=== PATIENT | male | born 1965 | race Two or more races ===

== ENCOUNTER 2018-03-19 22:12 | Inpatient (IN) | payer MEDICAID ==
[2018-03-19] MEDS ORDERED: diphenhydrAMINE 50 MG/ML 1 ML VIAL IVP STA (22:22)
[2018-03-19] MEDS ORDERED: methylPREDNISolone SOD SUCCI 125 MG/2 ML VIAL IV STA (22:22)
[2018-03-19] MEDS ORDERED: FAMOTIDINE 20 MG/2 ML VIAL IV STA (22:22)
[2018-03-19] MEDS ORDERED: EPINEPHrine 1 MG/ML 1 ML AMP IV STA (22:22)
[2018-03-19] MEDS: PROPOFOL 10 MG/ML 20 ML VIAL IV STA (22:26)
[2018-03-19] MEDS ORDERED: RACEPINEPHRINE 2.25% NEB 0.5 ML NEBU INHALATION STA (22:30)
[2018-03-19] MEDS ORDERED: SODIUM CHLORIDE 0.9% 1,000 ML IV STA (22:41)
--- NOTE | 2018-03-19 22:54 | XR ---
EXAMINATION TYPE: XR soft tissue neck DATE OF EXAM: 03/19/2018 COMPARISON: NONE HISTORY: Dysphagia TECHNIQUE: 2 views FINDINGS: Epiglottis is normal. Tonsils and adenoids appear normal. Subglottic trachea appears normal . There is no sign of radiopaque foreign body. IMPRESSION: Negative cervical soft tissue exam.
[2018-03-19 22:55] LABS: Basophils % (A) 1 %; Eosinophils # (A) 0.2 k/uL (0-0.7); Eosinophils % (A) 4 %; HCT 42.9 % (39.0-53.0); HGB 14.6 gm/dL (13.0-17.5); Lymphocytes # (A) 3.1 k/uL (1.0-4.8); Lymphocytes % (A) 49 %; MCH 30.3 pg (25.0-35.0); Mean Platelet Volume 7.5; Monocytes # (A) 0.3 k/uL (0-1.0); Monocytes % (A) 5 %; Neutrophils # (A) 2.5 k/uL (1.3-7.7); Neutrophils % (A) 39 %; Platelet Count 158 k/uL (150-450); RBC 4.82 m/uL (4.30-5.90); RDW 12.9 % (11.5-15.5); WBC 6.3 k/uL (3.8-10.6)
[2018-03-19] MEDS ORDERED: DEXAMETHASONE SOD PHOSPHATE 10 MG/ML 1 ML VIAL IV STA (23:02)
[2018-03-19 23:06] LABS: ALT 33 U/L (21-72); AST 40 U/L (17-59); Albumin 4.3 g/dL (3.5-5.0); Alkaline Phosphatase 52 U/L (38-126); Anion Gap 13 mmol/L; Blood Urea Nitrogen 21 mg/dL (9-20); Calcium 8.8 mg/dL (8.4-10.2); Carbon Dioxide 23 mmol/L (22-30); Chloride 106 mmol/L (98-107); Glucose 125 mg/dL (74-99); Potassium 3.3 mmol/L (3.5-5.1); Sodium 142 mmol/L (137-145); Total Bilirubin 0.5 mg/dL (0.2-1.3)
[2018-03-19 23:28] LABS: ABG Base Excess -20.4 mmol/L; ABG Oxygen Saturation 71.3 % (94-97); ABG PH 7.25 (7.35-7.45); ABG TCO2 7 mmol/L (19-24)
[2018-03-19 23:42] LABS: ABG PCO2 16 mmHg (35-45); ABG PO2 42 mmHg (83-108)
[2018-03-19 23:43] LABS: ABG HCO3 7 mmol/L (21-25)
[2018-03-20] MEDS ORDERED: EPINEPHrine 1 MG/ML 1 ML AMP SQ PRN (00:48)
[2018-03-20] MEDS ORDERED: NALOXONE 0.4 MG/ML 1 ML VIAL IV PRN (00:48)
[2018-03-20] MEDS ORDERED: diphenhydrAMINE 50 MG/ML 1 ML VIAL IVP PRN (00:48)
[2018-03-20] MEDS ORDERED: IPRATROPIUM-ALBUTEROL 3 ML NEB INHALATION PRN (00:48)
--- NOTE | 2018-03-20 00:56 | ED ---
Allergic Reaction HPI - General Chief complaint: Allergic Reaction Stated complaint: allergic reaction Source: patient, family, RN notes reviewed, old records reviewed Mode of arrival: wheelchair Limitations: no limitations, physical limitation - History of Present Illness Initial Comments: A 52-year-old male the ER for evaluation regarding ALLERGIC reaction. Patient is in severe distress at this time unable to provide history, patient's vital by EMS and patient's family. Patient apparently became exposed to peanuts prior to arrival he did did give himself some epinephrine injection on route. Patient's symptoms have significantly worsened and progressed in resulting in more significant shortness of breath, feels like throat is closing, near syncopal events MD Complaint: allergic reaction -: hour(s) (1) Exposure: food (Peanuts) Symptoms: facial swelling, difficulty swallowing, difficulty breathing, hoarseness, nausea Severity: severe Treatment Prior to Arrival: epinephrine Previous Allergy History: prior ED visit(s), anaphylaxis, intubation - Related Data Previous Rx's Medication Instructions Recorded EPINEPHrine [Epipen 2-Heron] 0.3 mg IM ONCE PRN #1 auto.injct 05/09/17 EPINEPHrine [Epipen 2-Heron] 0.3 mg IM ONCE PRN #4 ml 03/21/18 Allergies Allergy/AdvReac Type Severity Reaction Status Date / Time peanut Allergy Anaphylaxis Verified 03/19/18 22:20 tree nut Allergy Anaphylaxis Verified 03/19/18 22:20 Review of Systems ROS Statement: Those systems with pertinent positive or pertinent negative responses have been documented in the HPI. ROS Other: All systems not noted in ROS Statement are negative. Past Medical History Past Medical History: No Reported History Additional Past Medical History / Comment(s): symptomatic bradycardia post pacemaker insertion, obstructive sleep apnea, nut ALLERGY, use intubation for similar ALLERGIC reactions. History of Any Multi-Drug Resistant Organisms: None Reported Past Surgical History: Pacemaker Type of Cardiac Device: Permanent Pacemaker Device Placement Date:: U Past Psychological History: No Psychological Hx Reported Smoking Status: Never smoker Past Alcohol Use History: None Reported Past Drug Use History: None Reported General Exam - General Exam Comments Initial Comments: stridorous with croupy cough, difficulty with secretions and swallowing Limitations: no limitations General appearance: alert (somnolent), anxious, in distress Head exam: Present: atraumatic, normocephalic, normal inspection Eye exam: Present: normal appearance, PERRL, EOMI. Absent: scleral icterus, conjunctival injection, periorbital swelling ENT exam: Present: normal exam, mucous membranes moist Neck exam: Present: normal inspection. Absent: tenderness, meningismus, lymphadenopathy Respiratory exam: Present: wheezes, accessory muscle use, decreased breath sounds, prolonged expiratory. Absent: respiratory distress, rales, rhonchi, stridor Cardiovascular Exam: Present: regular rate, normal rhythm, normal heart sounds. Absent: systolic murmur, diastolic murmur, rubs, gallop, clicks GI/Abdominal exam: Present: soft, normal bowel sounds. Absent: distended, tenderness, guarding, rebound, rigid Extremities exam: Present: normal inspection, full ROM, normal capillary refill. Absent: tenderness, pedal edema, joint swelling, calf tenderness Back exam: Present: normal inspection Neurological exam: Present: alert, oriented X3, CN II-XII intact Psychiatric exam: Present: normal affect, normal mood Skin exam: Present: warm, dry, intact, normal color. Absent: rash Course Vital Signs 03/19/18 03/19/18 03/19/18 22:16 22:33 22:41 Temperature Pulse Rate 78 96 96 Respiratory 34 H 27 H Rate Blood Pressure 153/86 123/73 O2 Sat by Pulse 100 100 Oximetry 03/19/18 03/19/18 03/19/18 22:42 22:46 23:00 Temperature Pulse Rate 86 88 70 Respiratory 32 H 8 L Rate Blood Pressure 135/73 128/78 O2 Sat by Pulse 100 100 Oximetry 03/19/18 03/19/18 03/19/18 23:10 23:15 23:30 Temperature Pulse Rate 68 64 62 Respiratory 12 20 13 Rate Blood Pressure 119/71 111/62 O2 Sat by Pulse 100 100 100 Oximetry 03/19/18 03/20/18 23:45 01:39 Temperature 97.6 F Pulse Rate 66 60 Respiratory 17 18 Rate Blood Pressure 119/60 109/70 O2 Sat by Pulse 100 100 Oximetry - Reevaluation(s) Reevaluation #1: 03/20/18 00:54 bedside monitoring with patient through ALLERGIC reaction, anaphylaxis. Patient showed multiple different times rest for distress, stridor, croupy type cough. Patient became somnolent after prolonged hyper-hyperventilation Reevaluation #2: 10/06/18 00:55 Patient's medical record is reviewed, spoke with family patient has multiple episodes of severe anaphylaxis and has required intubation prior Medical Decision Making - Medical Decision Making 52 male with severe ALLERGIC reaction anaphylaxis, ALLERGIC croup, ALLERGIC reaction. Patient given epinephrine antihistamines steroids here in the emergency room, and was closely monitored, edema closely monitored. Patient will be admitted ICU for continued monitoring of airway and cardiopulmonary status hemodynamic - Lab Data Result diagrams: 03/21/18 07:39 03/21/18 07:39 Lab Results 03/19/18 03/19/18 03/19/18 Range/Units 22:45 22:45 22:45 WBC 6.3 (3.8-10.6) k/uL RBC 4.82 (4.30-5.90) m/uL Hgb 14.6 (13.0-17.5) gm/dL Hct 42.9 (39.0-53.0) % MCV 89.0 (80.0-100.0) fL MCH 30.3 (25.0-35.0) pg MCHC 34.0 (31.0-37.0) g/dL RDW 12.9 (11.5-15.5) % Plt Count 158 (150-450) k/uL Neutrophils % 39 % Lymphocytes % 49 % Monocytes % 5 % Eosinophils % 4 % Basophils % 1 % Neutrophils # 2.5 (1.3-7.7) k/uL Lymphocytes # 3.1 (1.0-4.8) k/uL Monocytes # 0.3 (0-1.0) k/uL Eosinophils # 0.2 (0-0.7) k/uL Basophils # 0.0 (0-0.2) k/uL Sample Site ABG pH (7.35-7.45) ABG pCO2 (35-45) mmHg ABG pO2 (83-108) mmHg ABG HCO3 (21-25) mmol/L ABG Total CO2 (19-24) mmol/L ABG O2 Saturation (94-97) % ABG Base Excess mmol/L Sree Test FiO2 % Sodium 142 (137-145) mmol/L Potassium 3.3 L (3.5-5.1) mmol/L Chloride 106 (98-107) mmol/L Carbon Dioxide 23 (22-30) mmol/L Anion Gap 13 mmol/L BUN 21 H (9-20) mg/dL Creatinine 0.64 L (0.66-1.25) mg/dL Est GFR (CKD-EPI)AfAm >90 (>60 ml/min/1.73 sqM) Est GFR (CKD-EPI)NonAf >90 (>60 ml/min/1.73 sqM) Glucose 125 H (74-99) mg/dL Calcium 8.8 (8.4-10.2) mg/dL Magnesium 2.2 (1.6-2.3) mg/dL Total Bilirubin 0.5 (0.2-1.3) mg/dL AST 40 (17-59) U/L ALT 33 (21-72) U/L Alkaline Phosphatase 52 (38-126) U/L Total Protein 7.0 (6.3-8.2) g/dL Albumin 4.3 (3.5-5.0) g/dL 03/19/18 Range/Units 23:25 WBC (3.8-10.6) k/uL RBC (4.30-5.90) m/uL Hgb (13.0-17.5) gm/dL Hct (39.0-53.0) % MCV (80.0-100.0) fL MCH (25.0-35.0) pg MCHC (31.0-37.0) g/dL RDW (11.5-15.5) % Plt Count (150-450) k/uL Neutrophils % % Lymphocytes % % Monocytes % % Eosinophils % % Basophils % % Neutrophils # (1.3-7.7) k/uL Lymphocytes # (1.0-4.8) k/uL Monocytes # (0-1.0) k/uL Eosinophils # (0-0.7) k/uL Basophils # (0-0.2) k/uL Sample Site LRA ABG pH 7.25 L (7.35-7.45) ABG pCO2 16 L* (35-45) mmHg ABG pO2 42 L* (83-108) mmHg ABG HCO3 7 L* (21-25) mmol/L ABG Total CO2 7 L (19-24) mmol/L ABG O2 Saturation 71.3 L (94-97) % ABG Base Excess -20.4 mmol/L Sree Test Yes FiO2 40 % Sodium (137-145) mmol/L Potassium (3.5-5.1) mmol/L Chloride (98-107) mmol/L Carbon Dioxide (22-30) mmol/L Anion Gap mmol/L BUN (9-20) mg/dL Creatinine (0.66-1.25) mg/dL Est GFR (CKD-EPI)AfAm (>60 ml/min/1.73 sqM) Est GFR (CKD-EPI)NonAf (>60 ml/min/1.73 sqM) Glucose (74-99) mg/dL Calcium (8.4-10.2) mg/dL Magnesium (1.6-2.3) mg/dL Total Bilirubin (0.2-1.3) mg/dL AST (17-59) U/L ALT (21-72) U/L Alkaline Phosphatase (38-126) U/L Total Protein (6.3-8.2) g/dL Albumin (3.5-5.0) g/dL - Radiology Data Radiology results: report reviewed (X-ray soft tissue neck is negative), image reviewed Critical Care Time Critical Care Time: Yes Total Critical Care Time: 65 Disposition Clinical Impression: Allergic reaction, Anaphylaxis, Food allergy Disposition: ADMITTED IP TO THIS [facility] Condition: Serious Is patient prescribed a controlled substance at d/c from ED?: No
[2018-03-20] MEDS: POTASSIUM CHLORIDE 20 MEQ in WATER FOR INJECTION 1 100ML.BAG IVPB SCH ×2 (01:09→03:43)
[2018-03-20] MEDS: PROPOFOL 10 MG/ML 20 ML VIAL IV STA (01:36)
[2018-03-20] MEDS: SODIUM CHLORIDE 0.9% 1,000 ML IV SCH ×2 (02:00→11:00)
--- NOTE | 2018-03-20 02:17 | P.HPIM ---
History of Present Illness H&P Date: 03/20/18 Chief Complaint: Difficulty breathing facial swelling The patient is a 52-year-old male with a history of pacemaker insertion due to symptomatic bradycardia, obstructive sleep apnea and documented tree nut ALLERGY that presents to the ER with chief complaint of sudden difficulty breathing facial swelling and difficulty swallowing. Apparently the patient had consumed peanuts at approximately 10 p last evening and shortly thereafter became increasingly dyspneic, hoarse and feeling like his throat was closing over. The patient gives himself epinephrine approximately 10:30pm and subsequently presented to the ER, the patient denies any other complaints of chest pain palpitations, he denies any wheezing, patient otherwise has no complaints. Review of records indicates the patient presented here approximately a year ago in May 01 after being transferred from an outside hospital where he had been intubated for severe ALLERGIC reaction due to treatment ALLERGY. In the ER he received a comprehensive workup and was started on systemic steroids with Decadron, IV Benadryl and Pepcid and given 2 more doses of epinephrine. Patient appeared hemodynamically stable but was recommended for admission due to acute respiratory failure Review of Systems Pertinent positives per HPI, all other review of systems are otherwise negative Past Medical History Past Medical History: No Reported History Additional Past Medical History / Comment(s): symptomatic bradycardia post pacemaker insertion, obstructive sleep apnea, nut ALLERGY, use intubation for similar ALLERGIC reactions. History of Any Multi-Drug Resistant Organisms: None Reported Past Surgical History: Pacemaker Type of Cardiac Device: Permanent Pacemaker Device Placement Date:: U Past Psychological History: No Psychological Hx Reported Smoking Status: Never smoker Past Alcohol Use History: None Reported Past Drug Use History: None Reported Medications and Allergies Home Medications Medication Instructions Recorded Confirmed Type EPINEPHrine [Epipen 2-Heron] 0.3 mg IM ONCE PRN #1 auto.injct 05/09/17 03/19/18 Rx Allergies Allergy/AdvReac Type Severity Reaction Status Date / Time peanut Allergy Anaphylaxis Verified 03/19/18 22:20 tree nut Allergy Anaphylaxis Verified 03/19/18 22:20 Physical Exam Vitals: Vital Signs Temp Pulse Resp BP Pulse Ox 03/20/18 01:39 97.6 F 60 18 109/70 100 03/19/18 23:45 66 17 119/60 100 03/19/18 23:30 62 13 111/62 100 03/19/18 23:15 64 20 119/71 100 03/19/18 23:10 68 12 100 03/19/18 23:00 70 8 L 128/78 100 03/19/18 22:46 88 32 H 135/73 100 03/19/18 22:42 86 03/19/18 22:41 96 27 H 123/73 100 03/19/18 22:33 96 03/19/18 22:16 78 34 H 153/86 100 Intake and Output 03/19/18 03/19/18 03/20/18 14:59 22:59 06:59 Other: Weight 77.111 kg Constitutional: No acute distress, conversant, pleasant Eyes: Anicteric sclerae, moist conjunctiva, no lid-lag, PERRLA ENMT: NC/AT,Oropharynx clear, no erythema, exudates, mucoid cobblestoning in posterior pharynx Neck:Supple, FROM, no masses, or JVD, No carotid bruits; No thyromegaly Lungs: Clear to auscultation, Clear to percussion, Normal respiratory effort, no accessory muscle use Cardiovascular: Heart regular in rate and rhythm, No murmurs, gallops, or rubs no peripheral edema Abdominal: Soft Nontender, nom distended, no guarding, no rebound or rigidity, Normoactive bowel sounds No hepatomegaly, No splenomegaly, No palpable mass No abdominal wall hernia noted Skin: Normal temperature, tone, texture, turgor, No induration No subcutaneous nodules, No rash, lesions, No ulcers Extremities:No digital cyanosis No clubbing, Pedal pulses intact and symmetrical Radial pulses intact and symmetrical Normal gait and station, No calf tenderness Psychiatric: Alert and oriented to person, place and time, Appropriate affect Intact judgement Neuro: Muscles Strength 5/5 in all 4 extremities, Sensation to light touch grossly present throughout, Cranial nerves II-XII grossly intact. No focal sensory deficits Results CBC & Chem 7: 03/19/18 22:45 03/19/18 22:45 Labs: Abnormal Lab Results - Last 24 Hours (Table) 03/19/18 03/19/18 Range/Units 22:45 23:25 ABG pH 7.25 L (7.35-7.45) ABG pCO2 16 L* (35-45) mmHg ABG pO2 42 L* (83-108) mmHg ABG HCO3 7 L* (21-25) mmol/L ABG Total CO2 7 L (19-24) mmol/L ABG O2 Saturation 71.3 L (94-97) % Potassium 3.3 L (3.5-5.1) mmol/L BUN 21 H (9-20) mg/dL Creatinine 0.64 L (0.66-1.25) mg/dL Glucose 125 H (74-99) mg/dL Assessment and Plan (1) Acute respiratory failure with hypoxia Current Visit: Yes Status: Acute Code(s): J96.01 - ACUTE RESPIRATORY FAILURE WITH HYPOXIA SNOMED Code(s): 27961802 (2) Allergic reaction Current Visit: Yes Status: Acute Code(s): T78.40XA - ALLERGY, UNSPECIFIED, INITIAL ENCOUNTER SNOMED Code(s): 403609438 (3) Food allergy Current Visit: Yes Status: Acute Code(s): Z91.018 - ALLERGY TO OTHER FOODS SNOMED Code(s): 312700298 (4) Hypokalemia Current Visit: Yes Status: Acute Code(s): E87.6 - HYPOKALEMIA SNOMED Code( s): 64747043 Plan: The patient is admitted to the ICU anticipated greater than 2 midnight stay with acute respiratory failure with hypoxia due to severe ALLERGIC reaction with concern for anaphylaxis although the patient is currently hemodynamically stable patient was noted to be pretty profoundly hypoxemic on his ABG. I will continue current therapies with plans to consult pulmonology, continue systemic steroids with IV Decadron, continue IV Benadryl and Pepcid, with plans to repeat EpiPen if needed. We'll replace his potassium and check to see if his magnesium needs to be replaced. Continue to monitor the patient's clinical course CODE STATUS Full code Discussed plan of care with patient DVT Prophylaxis: Lovenox and SCDs Anticipated discharge 1-2 days
[2018-03-20 02:30] VITALS: BMI 25.9
[2018-03-20 02:39] LABS: ABG Base Excess -2.2 mmol/L; ABG HCO3 23 mmol/L (21-25); ABG Oxygen Saturation 97.7 % (94-97); ABG PCO2 40 mmHg (35-45); ABG PH 7.37 (7.35-7.45); ABG PO2 96 mmHg (83-108); ABG TCO2 24 mmol/L (19-24)
[2018-03-20 03:00] LABS: Glucose,Whole Blood 110 mg/dL (75-99)
[2018-03-20] MEDS: diphenhydrAMINE 50 MG/ML 1 ML VIAL IVP SCH ×3 (05:17→17:59)
[2018-03-20] MEDS ORDERED: DEXAMETHASONE SOD PHOSPHATE 4 MG/ML 1 ML VIAL IV SCH (06:00)
[2018-03-20 06:15] LABS: Appearance,Urine Clear (Clear); Bilirubin,Urine Negative (Negative); Blood,Urine Negative (Negative); Color,Urine Light Yellow; Glucose,Urine (UA) Negative (Negative); Ketones,Urine Negative (Negative); Leukocyte Esterase,Urine Negative (Negative); Nitrite,Urine Negative (Negative); PH, Urine 5.5 (5.0-8.0); Protein,Urine Negative (Negative); Specific Gravity,Urine 1.009 (1.001-1.035); Urobilinogen,Urine <2.0 mg/dL (<2.0)
[2018-03-20 06:18] LABS: Basophils % (A) 0 %; Eosinophils % (A) 1 %; HCT 43.4 % (39.0-53.0); HGB 14.2 gm/dL (13.0-17.5); Lymphocytes # (A) 0.5 k/uL (1.0-4.8); Lymphocytes % (A) 9 %; MCH 29.8 pg (25.0-35.0); MCHC 32.8 g/dL (31.0-37.0); Mean Platelet Volume 8.3; Monocytes # (A) 0.1 k/uL (0-1.0); Monocytes % (A) 1 %; Neutrophils # (A) 4.5 k/uL (1.3-7.7); Neutrophils % (A) 88 %; Platelet Count 147 k/uL (150-450); RBC 4.77 m/uL (4.30-5.90); RDW 12.7 % (11.5-15.5); WBC 5.1 k/uL (3.8-10.6)
[2018-03-20 06:49] LABS: Anion Gap 8 mmol/L; Blood Urea Nitrogen 14 mg/dL (9-20); Calcium 8.9 mg/dL (8.4-10.2); Carbon Dioxide 23 mmol/L (22-30); Chloride 111 mmol/L (98-107); Glucose 145 mg/dL (74-99); Phosphorus 2.6 mg/dL (2.5-4.5); Potassium 4.8 mmol/L (3.5-5.1); Sodium 142 mmol/L (137-145)
[2018-03-20] MEDS: ENOXAPARIN 40 MG/0.4 ML SYRINGE SQ SCH (08:24)
[2018-03-20] MEDS: FAMOTIDINE 20 MG/2 ML VIAL IV SCH ×2 (08:24→22:47)
--- NOTE | 2018-03-20 09:08 | P.PN ---
Progress Note - Text Progress Note Date: 03/20/18 52 year old male with history of not ALLERGY, seems that he accidentally had a peanut snack bar that may have contained tree nuts, he reports that he is not ALLERGIC to peanuts last time he had peanuts was around a week ago however last night he immediately started having symptoms of itchiness and sore throat after having that peanuts bar for which she decided to use his EpiPen and come to the hospital for further evaluation He feels better today, still reports some itchiness in the back of his throat, and he continues to have some hoarseness and soft speech is not normal for him. He is continued to be monitored in the ICU probably once his symptoms improve will evaluate for swallowing Examination of throat did not reveal any erythema or any swelling in his tongue or soft palate
--- NOTE | 2018-03-20 09:55 | P.CNPUL ---
History of Present Illness Consult date: 03/20/18 Chief complaint: Acute anaphylactic reaction History of present illness: A 52-year-old male patient with known history of nut ALLERGY, ingested yesterday a protein bar which could've included some nuts or peanuts within. He ingested this at around 10 PM and subsequently he became short of breath, and developed extensive throat and neck swelling to the point that he felt his airway was closing and he was able to breathe. The patient has had a similar episode in the past, and I have taken care of this patient here in ICU for acute anaphylaxis requiring intubation mechanical ventilation. In any rate, he was aware of this problem the give himself a shot of epinephrine however he continued to be symptomatic and upcoming to the emergency department where he was given another dose of epinephrine, IV Decadron, IV Benadryl and Pepcid. He received 2 more dose of epinephrine in the emergency department. Following that he was moved to the intensive care unit. Overnight the patient gradually improved and this morning the patient is back to his baseline. Is able to swallow liquids. He is talking normally. No signs of any respiratory distress. No stridor. No neck swelling. No tongue swelling. No throat swelling. No lip swelling. No hemodynamic instability. No cardiac arrhythmias and the patient has a pacemaker in place. The patient also has obstructive sleep apnea maintained on CPAP. 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 Review of Systems Constitutional: Denies chills, Denies fever Eyes: denies blurred vision, denies bulging eye, denies decreased vision Ears: deny: ear discharge, earache, tinnitus Ears, nose, mouth and throat: Reports swelling in mouth, Reports swelling in throat and all of the symptoms have resolved this morning. The patient did not require any intubation or respiratory support during this current event. Cardiovascular: Denies chest pain, Denies shortness of breath Respiratory: Denies cough Gastrointestinal: Denies abdominal pain, Denies diarrhea, Denies nausea, Denies vomiting Musculoskeletal: Denies myalgias Musculoskeletal: absent: ankle pain, ankle stiffness, ankle swelling Integumentary: Denies pruritus, Denies rash Neurological: Denies numbness, Denies weakness Psychiatric: Denies anxiety, Denies depression Endocrine: Denies fatigue, Denies weight change Past Medical History Past Medical History: No Reported History Additional Past Medical History / Comment(s): symptomatic bradycardia post pacemaker insertion, obstructive sleep apnea, nut ALLERGY, previous intubation for similar ALLERGIC reactions. History of Any Multi-Drug Resistant Organisms: None Reported Past Surgical History: Pacemaker Past Anesthesia/Blood Transfusion Reactions: No Reported Reaction Type of Cardiac Device: Permanent Pacemaker Device Placement Date:: Past Psychological History: No Psychological Hx Reported Smoking Status: Never smoker Past Alcohol Use History: None Reported Past Drug Use History: None Reported Medications and Allergies Home Medications Medication Instructions Recorded Confirmed Type EPINEPHrine [Epipen 2-Heron] 0.3 mg IM ONCE PRN #1 auto.injct 05/09/17 03/19/18 Rx Allergies Allergy/AdvReac Type Severity Reaction Status Date / Time peanut Allergy Anaphylaxis Verified 03/19/18 22:20 tree nut Allergy Anaphylaxis Verified 03/19/18 22:20 Physical Exam Vitals: Vital Signs Temp Pulse Resp BP Pulse Ox 03/20/18 09:00 59 L 20 119/77 100 03/20/18 08:30 60 33 H 106/68 100 03/20/18 08:00 97.9 F 60 22 110/69 100 03/20/18 07:30 59 L 12 115/77 100 03/20/18 07:00 60 11 L 113/72 100 03/20/18 06:30 60 11 L 124/81 100 03/20/18 06:00 60 11 L 118/78 100 03/20/18 05:30 60 12 112/74 100 03/20/18 05:00 59 L 15 113/69 100 03/20/18 04:30 59 L 15 118/75 100 03/20/18 04:00 97.8 F 60 17 120/76 99 03/20/18 03:30 60 17 118/74 100 03/20/18 03:00 60 24 117/72 100 03/20/18 02:30 60 118/75 100 03/20/18 02:10 59 L 125/77 100 03/20/18 02:00 97.8 F 60 126/81 100 03/20/18 01:39 97.6 F 60 18 109/70 100 03/19/18 23:45 66 17 119/60 100 03/19/18 23:30 62 13 111/62 100 03/19/18 23:15 64 20 119/71 100 03/19/18 23:10 68 12 100 03/19/18 23:00 70 8 L 128/78 100 03/19/18 22:46 88 32 H 135/73 100 03/19/18 22:42 86 03/19/18 22:41 96 27 H 123/73 100 03/19/18 22:33 96 03/19/18 22:16 78 34 H 153/86 100 Intake and Output 03/19/18 03/20/18 03/20/18 22:59 06:59 14:59 Intake Total 800 200 Output Total 1050 500 Balance -250 -300 Intake: IV 800 200 Potassium Chloride 20 meq 200 In Water For Injection 1 100ml.bag @ 50 mls/hr IVPB Q2HR KAYLEY Rx#: [id number] Sodium Chloride 0.9% 1, 600 200 000 ml @ 100 mls/hr IV . Q10H KAYLEY Rx#:[id number] Output: Urine 1050 500 Other: Voiding Method Urinal # Voids 1 1 Weight 77.111 kg 77.3 kg The patient appeared well nourished and normally developed. Vital signs as documented. Head exam is unremarkable. No scleral icterus or corneal arcus noted. Neck is without jugular venous distension, thyromegaly, or carotid bruits. Carotid upstrokes are brisk bilaterally. Lungs are clear to auscultation and percussion. Cardiac exam reveals the PMI to be normally sized and situated. Rhythm is regular. First and second heart sounds normal. No murmurs, rubs or gallops. Abdominal exam reveals normal bowel sounds, no masses , no organomegaly and no aortic enlargement. Extremities are nonedematous and both femoral and pedal pulses are normal. Neurologically the patient is awake and alert and the patient has no focal neurological deficit.Examination of the skin revealed no evidence of significant rashes, suspicious appearing nevi or other concerning lesions. Results - Laboratory Findings CBC and BMP: 03/20/18 05:33 03/20/18 05:33 ABG ABG pH 7.37 (7.35-7.45) 03/20/18 02:37 ABG pCO2 40 mmHg (35-45) 03/20/18 02:37 ABG pO2 96 mmHg (83-108) 03/20/18 02:37 ABG O2 Saturation 97.7 % (94-97) H 03/20/18 02:37 Abnormal lab findings: Abnormal Labs 03/19/18 03/19/18 03/20/18 22:45 23:25 01:59 Plt Count Lymphocytes # ABG pH 7.25 L ABG pCO2 16 L* ABG pO2 42 L* ABG HCO3 7 L* ABG Total CO2 7 L ABG O2 Saturation 71.3 L Potassium 3.3 L Chloride BUN 21 H Creatinine 0.64 L Glucose 125 H POC Glucose (mg/dL) 110 H 03/20/18 03/20/18 03/20/18 02:37 05:33 05:33 Plt Count 147 L Lymphocytes # 0.5 L ABG pH ABG pCO2 ABG pO2 ABG HCO3 ABG Total CO2 ABG O2 Saturation 97.7 H Potassium Chloride 111 H BUN Creatinine 0.64 L Glucose 145 H POC Glucose (mg/dL) Assessment and Plan Plan: 1 acute respiratory failure secondary to acute ALLERGIC reaction to NUT product , probably angioedema, and the patient came into the emergency department after injecting himself with epinephrine and further treatment here with epinephrine and steroids and Benadryl resulted in fully recovered and the patient is back to his baseline at this point in time and he is able to converse and talk without any major difficulties. No signs of any upper airway compromise. No stridor. No airway swelling. 2 previous intubations for the same 3 symptomatic bradycardia status post pacemaker insertion 4 obstructive sleep apnea. Plan We'll discontinue the Decadron and will put the patient a prednisone burst taper. Discontinue Benadryl. Transfer this patient to medical floor. Advance diet. Mobility and activity. Cut down the IV fluids to KVO. We'll continue to follow.
[2018-03-20] MEDS: predniSONE 20 MG TAB PO SCH (11:21)
[2018-03-21] MEDS: diphenhydrAMINE 50 MG/ML 1 ML VIAL IVP SCH ×2 (00:10→07:14)
[2018-03-21 06:00] VITALS: BP 105/66; PULSE 58; RESP 16; TEMP 98.2
[2018-03-21 08:39] LABS: Basophils % (A) 0 %; Eosinophils # (A) 0.1 k/uL (0-0.7); Eosinophils % (A) 1 %; HCT 41.9 % (39.0-53.0); HGB 13.9 gm/dL (13.0-17.5); Lymphocytes # (A) 1.5 k/uL (1.0-4.8); Lymphocytes % (A) 19 %; MCH 30.1 pg (25.0-35.0); MCHC 33.1 g/dL (31.0-37.0); MCV 90.8 fL (80.0-100.0); Mean Platelet Volume 8.4; Monocytes # (A) 0.4 k/uL (0-1.0); Monocytes % (A) 5 %; Neutrophils # (A) 5.8 k/uL (1.3-7.7); Neutrophils % (A) 74 %; Platelet Count 147 k/uL (150-450); RBC 4.61 m/uL (4.30-5.90); WBC 7.8 k/uL (3.8-10.6)
[2018-03-21 08:51] LABS: Anion Gap 7 mmol/L; Blood Urea Nitrogen 20 mg/dL (9-20); Calcium 9.2 mg/dL (8.4-10.2); Carbon Dioxide 26 mmol/L (22-30); Chloride 107 mmol/L (98-107); Glucose 98 mg/dL (74-99); Magnesium 2.1 mg/dL (1.6-2.3); Phosphorus 2.6 mg/dL (2.5-4.5); Potassium 4.1 mmol/L (3.5-5.1); Sodium 140 mmol/L (137-145)
[2018-03-21] MEDS: predniSONE 20 MG TAB PO SCH (09:08)
[2018-03-21] MEDS: ENOXAPARIN 40 MG/0.4 ML SYRINGE SQ SCH (09:09)
[2018-03-21] MEDS: FAMOTIDINE 20 MG/2 ML VIAL IV SCH (09:10)
[2018-03-21] MEDS: SODIUM CHLORIDE 0.9% 1,000 ML IV SCH (09:11)
--- NOTE | 2018-03-21 11:24 | P.DS ---
Providers Date of admission: 03/20/18 00:53 Expected date of discharge: 03/21/18 Attending physician: Aamir Dang MD Consults: 03/20/18 00:48 Consult Physician Routine Consulting Provider: Geetha Estrada Consult Reason/Comments: anaphylaxia Do you want consulting provider notified?: Yes Primary care physician: Stated None Hospital Course: Final diagnoses at discharge Acute hypoxic respiratory failure secondary to acute ALLERGIC reaction due to not ALLERGY Secondary diagnoses Life threatening not ALLERGY History of bradycardia status post pacemaker Obstructive sleep apnea on CPAP 52-year-old male with history of life-threatening not ALLERGY, patient presented the hospital after getting exposed do not resulting in short of breath and patient was sensing throat and neck swelling for which he injected himself with epinephrine without much improvement so he decided to come to the hospital where he received 2 more units of epinephrine . Patient was monitored in the ICU and was given steroids and Benadryl and Pepcid was kept on IV fluids and nothing by mouth patient started showing improvement he did not require any intubation. Patient was seen and examined on day of discharge he significantly improved now tolerating by mouth intake denies any sore throat or any sensation of congestion or neck swelling . Patient feels that his voice is back to baseline. Patient denies any shortness of breath, stridorous, or any respiratory distress. On examination patient does not have any tongue swelling or deviation of the uvula does not have any swelling of his soft palate or the neck, No stridors Lungs clear to auscultation bilaterally Normal S1 and S2 regular rate and rhythm no murmurs No leg swelling no tenderness palpation of the calf muscles bilaterally Patient will be discharged in stable clinical condition Patient educated to avoid not products and to read the labels for some products are contaminated with knots during manufacturing Patient will keep epi-pens available at all times 40 minutes were spent discharging this patient, and more than 50% of the time was spent in counseling the patient and family and in coordinating care. Patient Condition at Discharge: Serious Plan - Discharge Summary New Discharge Prescriptions: Continue EPINEPHrine [Epipen 2-Heron] 0.3 mg IM ONCE PRN #1 auto.injct PRN Reason: Anaphylaxis Discharge Medication List EPINEPHrine [Epipen 2-Heron] 0.3 mg IM ONCE PRN #1 auto.injct 05/09/17 [Rx] Follow up Appointment(s)/Referral(s): None,Stated [Primary Care Provider] - 1-2 days Patient Instructions/Handouts: Food Allergy (DC), Anaphylaxis (DC) Discharge Disposition: HOME SELF-CARE
== END 2018-03-21 13:28 | disposition home or self-care (01) | DRG 915 ==
LOC: EC 22:12 → 6ICU 03-20 00:53 → 5MS5E 03-20 13:09
PROVIDERS: ADMIT Family Medicine; ATTEND Family Medicine
DX: T78.05XA Anaphylactic reaction due to tree nuts and seeds, initial encounter (principal); J96.01 Acute respiratory failure with hypoxia; E87.6 Hypokalemia; G47.33 Obstructive sleep apnea (adult) (pediatric); J05.0 Acute obstructive laryngitis [croup]; Z95.0 Presence of cardiac pacemaker; Z91.018 Allergy to other foods; Z91.010 Allergy to peanuts
CPT/HCPCS: 36415; 36600; 70360; 80048; 80053; 81003; 82805; 83735; 84100; 85025; 94640; 96361; 96365; 96374; 96375; 99291

== ENCOUNTER 2019-06-16 15:10 | Emergency (ER) | payer MEDICAID ==
[2019-06-16 15:27] VITALS: RESP 16
[2019-06-16] MEDS ORDERED: MECLIZINE 12.5 MG TAB PO STA (15:28)
[2019-06-16 15:42] LABS: Glucose,Whole Blood 106 mg/dL (75-99)
[2019-06-16 15:44] LABS: Basophils # (A) 0.1 k/uL (0-0.2); Basophils % (A) 1 %; Eosinophils # (A) 0.3 k/uL (0-0.7); Eosinophils % (A) 5 %; HCT 44.8 % (39.0-53.0); Lymphocytes # (A) 1.2 k/uL (1.0-4.8); Lymphocytes % (A) 23 %; MCH 29.9 pg (25.0-35.0); MCHC 33.5 g/dL (31.0-37.0); Mean Platelet Volume 8.4; Monocytes # (A) 0.3 k/uL (0-1.0); Monocytes % (A) 6 %; Neutrophils # (A) 3.3 k/uL (1.3-7.7); Neutrophils % (A) 63 %; Platelet Count 164 k/uL (150-450); RBC 5.03 m/uL (4.30-5.90); RDW 12.3 % (11.5-15.5); WBC 5.3 k/uL (3.8-10.6)
[2019-06-16 15:49] LABS: ALT 24 U/L (4-49); AST 32 U/L (17-59); African American GFR (CKD) >90 (>60 ml/min/1.73 sqM); Albumin 4.3 g/dL (3.5-5.0); Alkaline Phosphatase 52 U/L (38-126); Anion Gap 9 mmol/L; Blood Urea Nitrogen 21 mg/dL (9-20); Calcium 9.5 mg/dL (8.4-10.2); Carbon Dioxide 24 mmol/L (22-30); Chloride 106 mmol/L (98-107); Creatine Kinase 72 U/L (55-170); Glucose 107 mg/dL (74-99); Magnesium 2.2 mg/dL (1.6-2.3); Non-African American GFR(CKD) >90 (>60 ml/min/1.73 sqM); Partial Thromboplastin Time 23.7 sec (22.0-30.0); Potassium 4.4 mmol/L (3.5-5.1); Prothrombin Time 10.4 sec (9.0-12.0); Sodium 139 mmol/L (137-145); Total Bilirubin 0.7 mg/dL (0.2-1.3); Total Protein 6.8 g/dL (6.3-8.2)
[2019-06-16] MEDS ORDERED: ONDANSETRON 4 MG/2 ML VIAL IVP STA (15:53)
--- NOTE | 2019-06-16 16:00 | ED ---
Dizziness HPI - General Chief Complaint: Syncope Stated Complaint: Syncope Time Seen by Provider: 06/16/19 15:25 Source: patient, family, RN notes reviewed Mode of arrival: ambulatory Limitations: no limitations - History of Present Illness Initial Comments: This is a 53-year-old male with a history of closed head injury in the past as well as a pacemaker who is been having episodes of syncope since last night fever past 2 days and had pain behind his left eye he had 2 episodes last night of passing out for about 15-20 seconds he had 2 further episodes in the emergency department today. He states he feels very dizzy lightheaded especially with looking to the left. He denies any focal weakness to his arms or legs no palpitations no fevers chills sweats he did have some nausea. No other modifying factors this time. He has no prior history of stroke he also has not had his pacemaker interrogated for quite some time. MD Complaint: dizziness, other - Related Data Previous Rx's Medication Instructions Recorded EPINEPHrine [Epipen 2-Heron] 0.3 mg IM ONCE PRN #1 auto.injct 05/09/17 EPINEPHrine [Epipen 2-Heron] 0.3 mg IM ONCE PRN #4 ml 03/21/18 Allergies Allergy/AdvReac Type Severity Reaction Status Date / Time peanut Allergy Anaphylaxis Verified 03/19/18 22:20 tree nut Allergy Anaphylaxis Verified 03/19/18 22:20 Review of Systems ROS Statement: Those systems with pertinent positive or pertinent negative responses have been documented in the HPI. ROS Other: All systems not noted in ROS Statement are negative. Past Medical History Past Medical History: No Reported History Additional Past Medical History / Comment(s): symptomatic bradycardia post pacemaker insertion, obstructive sleep apnea, nut ALLERGY, use intubation for similar ALLERGIC reactions. History of Any Multi-Drug Resistant Organisms: None Reported Past Surgical History: Pacemaker Past Anesthesia/Blood Transfusion Reactions: No Reported Reaction Type of Cardiac Device: Permanent Pacemaker Device Placement Date:: U Past Psychological History: No Psychological Hx Reported Smoking Status: Never smoker Past Alcohol Use History: None Reported Past Drug Use History: None Reported General Exam - General Exam Comments Initial Comments: This is a well-developed well-nourished awake alert oriented times 3 male Limitations: no limitations General appearance: alert, in no apparent distress Head exam: Present: atraumatic, normocephalic, normal inspection Eye exam: Present: normal appearance, PERRL, EOMI. Absent: scleral icterus, c onjunctival injection, periorbital swelling ENT exam: Present: normal exam, mucous membranes moist Neck exam: Present: normal inspection, full ROM, other. Absent: tenderness, meningismus, lymphadenopathy Respiratory exam: Present: normal lung sounds bilaterally. Absent: respiratory distress, wheezes, rales, rhonchi, stridor Cardiovascular Exam: Present: regular rate, normal rhythm, normal heart sounds. Absent: systolic murmur, diastolic murmur, rubs, gallop, clicks GI/Abdominal exam: Present: soft, normal bowel sounds. Absent: distended, tenderness, guarding, rebound, rigid Extremities exam: Present: normal inspection, full ROM, normal capillary refill. Absent: tenderness, pedal edema, joint swelling, calf tenderness Back exam: Present: normal inspection Neurological exam: Present: alert, oriented X3, CN II-XII intact Psychiatric exam: Present: normal affect, normal mood Skin exam: Present: warm, dry, intact, normal color. Absent: rash Course Vital Signs 06/16/19 06/16/19 06/16/19 15:24 15:53 18:36 Pulse Rate 60 61 62 Respiratory 16 16 16 Rate Blood Pressure 95/71 132/82 117/66 O2 Sat by Pulse 97 100 98 Oximetry EKG Findings - EKG Results: EKG: interpreted by RALEIGH (Pacemaker rhythm 62 ID interval 162 QRS 84 QT since QTC 388/93 some artifact present) Medical Decision Making - Medical Decision Making She have an episode of syncope admitted I did witness this lasted a brief period time perhaps 15-30 seconds. Patient remains awake and alert at this time. I did discuss the findings with patient family they've requested transfer to [place] discuss case with Dr. Del Cid was agreed to accept the patient transfer. - Lab Data Result diagrams: 06/16/19 15:11 06/16/19 15:11 Lab Results 06/16/19 06/16/19 06/16/19 Range/Units 15:11 15:11 15:11 WBC 5.3 (3.8-10.6) k/uL RBC 5.03 (4.30-5.90) m/uL Hgb 15.0 (13.0-17.5) gm/dL Hct 44.8 (39.0-53.0) % MCV 89.0 (80.0-100.0) fL MCH 29.9 (25.0-35.0) pg MCHC 33.5 (31.0-37.0) g/dL RDW 12.3 (11.5-15.5) % Plt Count 164 (150-450) k/uL Neutrophils % 63 % Lymphocytes % 23 % Monocytes % 6 % Eosinophils % 5 % Basophils % 1 % Neutrophils # 3.3 (1.3-7.7) k/uL Lymphocytes # 1.2 (1.0-4.8) k/uL Monocytes # 0.3 (0-1.0) k/uL Eosinophils # 0.3 (0-0.7) k/uL Basophils # 0.1 (0-0.2) k/uL PT 10.4 (9.0-12.0) sec INR 1.0 (<1.2) APTT 23.7 (22.0-30.0) sec Sodium 139 (137-145) mmol/L Potassium 4.4 (3.5-5.1) mmol/L Chloride 106 (98-107) mmol/L Carbon Dioxide 24 (22-30) mmol/L Anion Gap 9 mmol/L BUN 21 H (9-20) mg/dL Creatinine 0.93 (0.66-1.25) mg/dL Est GFR (CKD-EPI)AfAm >90 (>60 ml/min/1.73 sqM) Est GFR (CKD-EPI)NonAf >90 (>60 ml/min/1.73 sqM) Glucose 107 H (74-99) mg/dL POC Glucose (mg/dL) (75-99) mg/dL POC Glu Svp Monetization ID Calcium 9.5 (8.4-10.2) mg/dL Magnesium 2.2 (1.6-2.3) mg/dL Total Bilirubin 0.7 (0.2-1.3) mg/dL AST 32 (17-59) U/L ALT 24 (4-49) U/L Alkaline Phosphatase 52 (38-126) U/L Creatine Kinase 72 (55-170) U/L Troponin I (0.000-0.034) ng/mL Total Protein 6.8 (6.3-8.2) g/dL Albumin 4.3 (3.5-5.0) g/dL 06/16/19 06/16/19 Range/Units 15:11 15:31 WBC (3.8-10.6) k/uL RBC (4.30-5.90) m/uL Hgb (13.0-17.5) gm/dL Hct (39.0-53.0) % MCV (80.0-100.0) fL MCH (25.0-35.0) pg MCHC (31.0-37.0) g/dL RDW (11.5-15.5) % Plt Count (150-450) k/uL Neutrophils % % Lymphocytes % % Monocytes % % Eosinophils % % Basophils % % Neutrophils # (1.3-7.7) k/uL Lymphocytes # (1.0-4.8) k/uL Monocytes # (0-1.0) k/uL Eosinophils # (0-0.7) k/uL Basophils # (0-0.2) k/uL PT (9.0-12.0) sec INR (<1.2) APTT (22.0-30.0) sec Sodium (137-145) mmol/L Potassium (3.5-5.1) mmol/L Chloride (98-107) mmol/L Carbon Dioxide (22-30) mmol/L Anion Gap mmol/L BUN (9-20) mg/dL Creatinine (0.66-1.25) mg/dL Est GFR (CKD-EPI)AfAm (>60 ml/min/1.73 sqM) Est GFR (CKD-EPI)NonAf (>60 ml/min/1.73 sqM) Glucose (74-99) mg/dL POC Glucose (mg/dL) 106 H (75-99) mg/dL POC Glu Svp Monetization ID Dexter Rosa Calcium (8.4-10.2) mg/dL Magnesium (1.6-2.3) mg/dL Total Bilirubin (0.2-1.3) mg/dL AST (17-59) U/L ALT (4-49) U/L Alkaline Phosphatase (38-126) U/L Creatine Kinase (55-170) U/L Troponin I <0.012 (0.000-0.034) ng/mL Total Protein (6.3-8.2) g/dL Albumin (3.5-5.0) g/dL - Radiology Data Radiology results: report reviewed (I did review the imaging and report no acute findings.), image reviewed Disposition Clinical Impression: Syncopal episodes Disposition: OTHER INSTITUTION NOT DEFINED Condition: Stable Referrals: None,Stated [Primary Care Provider] - 1-2 days - Out of Hospital Transfer - Req. Specs Out of Hospital Transfer - Requested Specifics: Other Emergency Center
[2019-06-16] MEDS ORDERED: SODIUM CHLORIDE 0.9% 500 ML 500 ML IV STA (16:11)
--- NOTE | 2019-06-16 16:20 | CT ---
EXAMINATION TYPE: CT brain wo con DATE OF EXAM: 06/16/2019 COMPARISON: 08/10/2013 HISTORY: 53-year-old male Headache and multiple syncopal episodes TECHNIQUE: Examination was done in axial plane without intravenous contrast. Coronal and sagittal r econstructions performed. CT DLP: 1147 mGycm Automated exposure control for dose reduction was used. FINDINGS: There is no evidence of acute intracranial hemorrhage, acute ischemic changes, mass, mass-effect, or extra-axial fluid collection. There is no effacement of cerebral sulci or basal subarachnoid cister ns. There is no hydrocephalus. There is no midline shift. Tinajero-white matter distinction is preserv ed. Scattered moderate mucosal thickening ethmoid air cells. Slight leftward nasal septal deviation. Mast oid air cells are well pneumatized. Orbits and globes are intact. IMPRESSION: No acute intracranial abnormality seen.
--- NOTE | 2019-06-16 16:28 | CT ---
EXAMINATION TYPE: CT angio head neck DATE OF EXAM: 06/16/2019 COMPARISON: Brain same day HISTORY: 53-year-old male Headache and multiple syncopal episodes TECHNIQUE: Contiguous axial scanning of the head and neck performed with IV Contrast, patient injecte d with 65 mL of Isovue 370. Coronal/sagittal MIP reconstructions performed. 3-D reconstructions gener ated on a dedicated independent workstation. CT DLP: 619.2 mGycm Automated exposure control for dose reduction was used. FINDINGS: Neck: Conventional arch vessel branching anatomy. Both vertebral arteries are coarse. The bilateral common and internal carotid arteries are widely patent. Head: The vertebral, basilar, and internal carotid arteries are patent. Hypoplastic A1 segment right anterior cerebral artery. No significant stenosis or aneurysmal changes seen. IMPRESSION: 1. NECK: WIDELY PATENT VERTEBRAL AND CAROTID ARTERIES OF THE NECK. 2. HEAD: NO LARGE VESSEL INTRACRANIAL ARTERIAL OCCLUSION, SIGNIFICANT STENOSIS, OR ANEURYSMAL CHANGE IS SEEN.
[2019-06-16 18:38] VITALS: BP 117/66; PULSE 62
== END 2019-06-16 19:35 | disposition short-term general hospital (02) ==
LOC: EC 15:10
DX: R55 Syncope and collapse (principal); R50.9 Fever, unspecified; H57.12 Ocular pain, left eye; R11.0 Nausea; Z91.010 Allergy to peanuts; Z91.018 Allergy to other foods; Z87.828 Personal history of other (healed) physical injury and trauma; Z95.0 Presence of cardiac pacemaker
CPT/HCPCS: 36415; 93005; 80053; 82550; 83735; 84484; 85025; 85610; 85730; 70496; 70450; 70498; 99285; 96374; J2405; Q9967

== ENCOUNTER → 2019-08-03 | Outpatient (CLI) | payer MEDICAID ==
--- NOTE | 2019-08-03 11:40 | ECHOS ---
STRESS ECHOCARDIOGRAM DATE OF SERVICE: 08/03/2019 LUMASON: 1 vial INDICATIONS: History of syncope. MEDICATIONS: BASELINE HEART RATE: 100 BASELINE BLOOD PRESSURE: 115/56 MAXIMUM HEART RATE: 156 MAXIMUM BLOOD PRESSURE: 172/65 85% MPHR: 141 100% MPHR: 166 METS: 12.1 MAXIMUM STAGE REACHED: IV TOTAL EXERCISE TIME: 10 minutes 15 seconds CLINICAL INFORMATION: Baseline heart rate 100 beats per minute. Baseline blood pressure 115/56 mmHg. Baseline 12-lead ECG shows normal sinus rhythm with early repolarization abnormality inferolaterally with a [address] elevation. Patient exercised on a Biju protocol for 10 minutes 15 seconds achieving a peak heart rate of 156 beats per minute. Normal blood pressure response. No exercise induced arrhythmias. The baseline 2D echo images were suboptimal; therefore, Lumason contrast was used. There was at baseline normal LV size and systolic function was noted without segmental wall motion abnormalities. At peak exercise, there was excellent augmentation of overall LV contractility without development of any wall motion abnormalities. At recovery, regional global LV systolic function remained normal. IMPRESSION: 1. No ECG or echocardiographic evidence for ischemia. 2. No arrhythmias noted. MMODL / IJN: [id number] /
== END | disposition home or self-care (01) ==
LOC: RADECHMAIN 08:23
PROVIDERS: ATTEND Internal Medicine Clinical Cardiac Electrophysiology
DX: R55 Syncope and collapse (principal); R00.2 Palpitations; R68.84 Jaw pain
CPT/HCPCS: 93351; Q9950

== ENCOUNTER → 2023-01-29 | Outpatient (CLI) | payer MEDICAID ==
--- NOTE | 2023-01-29 16:56 | XR ---
EXAMINATION TYPE: XR ankle complete LT DATE OF EXAM: 01/29/2023 COMPARISON: NONE HISTORY: Pain TECHNIQUE: 3 views of the left ankle are submitted for evaluation. FINDINGS: There is no evidence for fracture or dislocation. Ankle mortise is intact. Mild lateral sof t tissue swelling. Postoperative changes involving the great toe. IMPRESSION: 1. No evidence for acute fracture.
== END | disposition home or self-care (01) ==
LOC: RADXRMAIN 16:39
PROVIDERS: ATTEND Physician Assistant
DX: M25.572 Pain in left ankle and joints of left foot (principal)

== ENCOUNTER 2023-04-09 09:33 | Emergency (ER) | payer MEDICAID ==
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
[2023-04-09 10:50] VITALS: BP 115/75; PULSE 78; RESP 16; TEMP 98.4
== END 2023-04-09 11:36 | disposition home or self-care (01) ==
LOC: EC 09:33
DX: L23.7 Allergic contact dermatitis due to plants, except food (principal); Z91.010 Allergy to peanuts; Z91.018 Allergy to other foods; Z95.0 Presence of cardiac pacemaker
CPT/HCPCS: 99283

== ENCOUNTER 2024-07-11 23:36 | Emergency (ER) | payer BC, MEDICAID ==
--- NOTE | 2024-07-11 23:45 | ED ---
Chest Pain HPI - General Source: patient, RN notes reviewed Mode of arrival: ambulatory Limitations: no limitations - History of Present Illness MD Complaint: chest pain <Jenna Bryan - Last Filed: 07/11/24 23:43> <Maycol Naidu - Last Filed: 07/12/24 01:13> - General Chief Complaint: Chest Pain Stated Complaint: Chest Pain Time Seen by Provider: 07/11/24 23:40 - History of Present Illness Initial Comments: Quick Note: This is a 58-year-old male who presents to the emergency department for chest pain and abdominal pain. States that his pacemaker has been out of battery for the last 2 weeks and his heart rate is getting down as low as 34. He is also now experiencing left-sided chest pain. Denies any history of heart attacks. Additionally, states that he has been having left lower quadrant abdominal pain for the last few days. He is concerned because he has a history of his colon rupturing and states that pain feels very similar. (Jenna Bryan) 58-year-old male presenting with left lower quadrant pain. [facility] Patient is coming in with chief complaint of left lower quadrant pain for the past several days as well as several hard bowel movements. No central chest pain. No fever. No dysuria or hematuria. (Maycol Naidu) - Related Data Previous Rx's Medication Instructions Recorded EPINEPHrine [Epipen 2-Heron] 0.3 mg IM ONCE PRN #1 auto.injct 05/09/17 EPINEPHrine [Epipen 2-Heron] 0.3 mg IM ONCE PRN #4 ml 03/21/18 EPINEPHrine (Auto Inject) [Epipen] 0.3 mg IM ONCE PRN #1 pack 10/07/22 Famotidine [Pepcid] 20 mg PO BID #14 tablet 10/07/22 predniSONE 50 mg PO DAILY #5 tab 10/07/22 Hydrocortisone Oint 1 applic TOPICAL BID #28 gm 04/09/23 [Hydrocortisone 2.5% Oint] hydrOXYzine HCL [Atarax] 25 mg PO TID PRN #20 tab 04/09/23 methylPREDNISolone [Medrol Dose 0 mg PO DIRECTED #1 packet 04/09/23 Pack] Amoxic-Pot Clav 875-125Mg 1 tab PO Q12HR 10 Days #20 tab 07/12/24 [Augmentin 874-274] Allergies Allergy/AdvReac Type Severity Reaction Status Date / Time peanut Allergy Anaphylaxis Verified 07/12/24 00:11 tree nut Allergy Anaphylaxis Verified 07/12/24 00:11 Review of Systems ROS Other: All systems not noted in ROS Statement are negative. <Jenna Bryan - Last Filed: 07/11/24 23:43> ROS Other: All systems not noted in ROS Statement are negative. <Maycol Naidu - Last Filed: 07/12/24 01:13> ROS Statement: Those systems with pertinent positive or pertinent negative responses have been documented in the HPI. Past Medical History Past Medical History: No Reported History Additional Past Medical History / Comment(s): symptomatic bradycardia post pacemaker insertion, obstructive sleep apnea, nut ALLERGY, use intubation for similar ALLERGIC reactions. History of Any Multi-Drug Resistant Organisms: None Reported Past Surgical History: Pacemaker Past Anesthesia/Blood Transfusion Reactions: No Reported Reaction Type of Cardiac Device: Permanent Pacemaker Device Placement Date:: U Past Psychological History: No Psychological Hx Reported Smoking Status: Never smoker Past Alcohol Use History: None Reported Past Drug Use History: None Reported <Jenna Bryan - Last Filed: 07/11/24 23:43> General Exam <Jenna Bryan - Last Filed: 07/11/24 23:43> General appearance: alert, in no apparent distress Head exam: Present: atraumatic, normocephalic Eye exam: Present: normal appearance, PERRL ENT exam: Present: normal exam Neck exam: Present: normal inspection. Absent: tenderness, meningismus Respiratory exam: Present: normal lung sounds bilaterally. Absent: respiratory distress, wheezes Cardiovascular Exam: Present: regular rate, normal rhythm GI/Abdominal exam: Present: soft, tenderness (LLQ). Absent: distended Extremities exam: Present: normal inspection Neurological exam: Present: alert, oriented X3, CN II-XII intact. Absent: motor sensory deficit Psychiatric exam: Present: normal affect, normal mood Skin exam: Present: warm, dry, intact <Maycol Naidu - Last Filed: 07/12/24 01:13> - General Exam Comments Initial Comments: Visual Physical Exam Vital signs reviewed General: Well-appearing, nontoxic, no acute distress. Head: Normocephalic, atraumatic Eyes: PERRLA, EOMI ENT: Airway patent Chest: Nonlabored breathing Skin: No visual rash, normal skin tone Neuro: Alert and oriented 3 Musculoskeletal: No gross abnormalities (Jenna Bryan) Course Vital Signs 07/12/24 00:05 Temperature 98.5 F Pulse Rate 69 Respiratory 16 Rate Blood Pressure 140/88 O2 Sat by Pulse 99 Oximetry Chest Pain MDM <Jenna Bryan - Last Filed: 07/11/24 23:43> <Maycol Naidu - Last Filed: 07/12/24 01:13> - [facility] I performed the QuickNote portion of this chart. Signed Jenna Bryan PA-C. (Jenna Bryan) Was pt. sent in by a medical professional or institution (ALICIA Mistry, CELLOPHANE BAG MACHINE OPERATOR, urgent care, hospital, or [facility]...) When possible be specific @ -No Did you speak to anyone other than the patient for history (EMS, parent, family, police, friend...)? What history was obtained from this source @ -No Did you review nursing and triage notes (agree or disagree)? Why? @ -I reviewed and agree with nursing and triage notes Were old charts reviewed (outside hosp., previous admission, EMS record, old EKG, old radiological studies, urgent care reports/EKG's, [facility] records)? Report findings @ -No old charts were reviewed Differential Abdominal Pain Men: Appendicitis, cholecystitis, diverticulosis, ischemic bowel, pancreatitis, hepatitis, UTI, gastroenteritis, AAA, incarcerated hernia, bowel obstruction, constipation, inflammatory bowel, hepatitis, peptic ulcer disease, splenic infarction, perforated viscus, testicular torsion, this is not meant to be an all-inclusive list EKG interpreted by me (3pts min.). @ -Sinus bradycardia rate of 57, NC interval 160, QRS duration 87, QTc [address] segment elevation. X-rays interpreted by me (1pt min.). @ -[Chest x-ray negative for acute cardiopulmonary findings CT interpreted by me (1pt min.). @ -CT brain negative for intracranial hemorrhage or mass effect, CT of the abdomen pelvis with contrast shows acute diverticulitis. U/S interpreted by me (1pt. min.). @ -None done What testing was considered but not performed or refused? (CT, X-rays, U/S, labs)? Why? @ -None What meds were considered but not given or refused? Why? @ -None Did you discuss the management of the patient with other professionals (professionals i.e. , PA, CELLOPHANE BAG MACHINE OPERATOR, lab, RT, psych nurse, clinical social work aide, soda column operator, teacher, peace officer, shoe caser)? Give summary @ -No Was smoking cessation discussed for >3mins.? @ -No Was critical care preformed (if so, how long)? @ -No Were there social determinants of health that impacted care today? How? (Home lessness, low income, unemployed, alcoholism, drug addiction, transportation, low edu. Level, literacy, decrease access to med. care, [facility]p, rehab)? @ -No Was there de-escalation of care discussed even if they declined (Discuss DNR or withdrawal of care, Hospice)? DNR status @ -No What co-morbidities impacted this encounter? (DM, HTN, Smoking, COPD, CAD, Cancer, CVA, ARF, Chemo, Hep., AIDS, mental health diagnosis, sleep apnea, morbid obesity)? @ -None Was patient admitted / discharged? Hospital course, mention meds given and route, prescriptions, significant lab abnormalities, going to OR and other pertinent info. @ -[ 58-year-old male with chief complaint of left lower quadrant pain. Patient is tender on exam. He is afebrile he is in sinus rhythm not pacemaker dependent. Patient has CT evidence of acute diverticulitis. He has a normal white blood cell count, normal lactic, normal laboratory testing otherwise. Patient's pain is controlled in the emergency department. He started on Augmentin. He will continue to follow as an outpatient. Undiagnosed new problem with uncertain prognosis? @ -No Drug Therapy requiring intensive monitoring for toxicity (Heparin, Nitro, Insuli n, Cardizem)? @ -No Were any procedures done? @ -No Diagnosis/symptom? @Acute diverticulitis Acute, or Chronic, or Acute on Chronic? @ -Acute Uncomplicated (without systemic symptoms) or Complicated (systemic symptoms)? @ -Default Side effects of treatment? @ -No Exacerbation, Progression, or Severe Exacerbation? @ -No Poses a threat to life or bodily function? How? (Chest pain, USA, CT, pneumonia, PE, COPD, DKA, ARF, appy, cholecystitis, CVA, Diverticulitis, Homicidal, Suicidal, threat to staff... and all critical care pts) @ -No (Maycol Naidu) Disposition <Jenna Bryan - Last Filed: 07/11/24 23:43> Is patient prescribed a controlled substance at d/c from ED?: No Time of Disposition: 01:13 <Maycol Naidu - Last Filed: 07/12/24 01:13> Clinical Impression: Diverticulitis Disposition: HOME SELF-CARE Condition: Fair Instructions (If sedation given, give patient instructions): Diverticulitis (ED) Prescriptions: Amoxic-Pot Clav 875-125Mg [Augmentin 875-125] 1 tab PO Q12HR 10 Days #20 tab Referrals: None,Stated [Primary Care Provider] - 1-2 days
[2024-07-12] MEDS: SODIUM CHLORIDE 0.9% 1,000 ML IV ONE (00:22)
[2024-07-12] MEDS: ONDANSETRON 4 MG/2 ML VIAL IVP STA (00:37)
[2024-07-12 00:47] LABS: Basophils # (A) 0.1 k/uL (0-0.2); Basophils % (A) 1 %; Eosinophils # (A) 0.3 k/uL (0-0.7); Eosinophils % (A) 4 %; HCT 44.4 % (39.0-53.0); HGB 14.8 gm/dL (13.0-17.5); Lymphocytes # (A) 1.8 k/uL (1.0-4.8); Lymphocytes % (A) 23 %; MCH 30.1 pg (25.0-35.0); MCHC 33.4 g/dL (31.0-37.0); MCV 90.1 fL (80.0-100.0); Mean Platelet Volume 8.1; Monocytes # (A) 0.5 k/uL (0-1.0); Monocytes % (A) 6 %; Neutrophils % (A) 65 %; Platelet Count 165 k/uL (150-450); RBC 4.93 m/uL (4.30-5.90); RDW 12.8 % (11.5-15.5); WBC 7.7 k/uL (3.8-10.6)
[2024-07-12 00:48] LABS: Appearance,Urine Clear (Clear); Bilirubin,Urine Negative (Negative); Blood,Urine Negative (Negative); Color,Urine Light Yellow; Glucose,Urine (UA) Negative (Negative); Ketones,Urine Negative (Negative); Leukocyte Esterase,Urine Negative (Negative); Nitrite,Urine Negative (Negative); Protein,Urine Negative (Negative); Specific Gravity,Urine 1.028 (1.001-1.035); Urobilinogen,Urine <2.0 mg/dL (<2.0)
[2024-07-12 01:00] LABS: ALT 20 U/L (4-49); AST 22 U/L (17-59); African American GFR (CKD) >90 (>60 ml/min/1.73 sqM); Albumin 4.3 g/dL (3.5-5.0); Alkaline Phosphatase 56 U/L (38-126); Anion Gap 11 mmol/L; Blood Urea Nitrogen 25 mg/dL (9-20); Calcium 9.1 mg/dL (8.4-10.2); Carbon Dioxide 26 mmol/L (22-30); Chloride 100 mmol/L (98-107); Glucose 99 mg/dL (74-99); Magnesium 2.3 mg/dL (1.6-2.3); Non-African American GFR(CKD) >90 (>60 ml/min/1.73 sqM); Potassium 4.4 mmol/L (3.5-5.1); Sodium 137 mmol/L (137-145); Total Bilirubin 1.1 mg/dL (0.2-1.3); Total Protein 6.6 g/dL (6.3-8.2)
--- NOTE | 2024-07-12 01:00 | CT ---
EXAM: CT Head Without Intravenous Contrast CLINICAL HISTORY: ITS.REASON CT Reason: fall/syncope TECHNIQUE: Axial computed tomography images of the head/brain without intravenous contrast. This CT exam was performed using one or more of the following dose reduction techniques: automated exposure control, adjustment of the mA and/or kV according to patient size, and/or use of iterative reconstruction technique. COMPARISON: No relevant prior studies available. FINDINGS: No acute intracranial hemorrhage. No midline shift or mass effect. The territorial emery-white matter differentiation is maintained throughout. The ventricles and sulci are commensurate with age. The visualized orbits appear grossly unremarkable. The calvarium is intact. The visualized paranasal sinuses and mastoid air cells are grossly clear. IMPRESSION: No acute intracranial hemorrhage, midline shift, or mass effect.
--- NOTE | 2024-07-12 01:05 | CT ---
EXAM: CT Abdomen and Pelvis With Intravenous Contrast CLINICAL HISTORY: ITS.REASON CT Reason: LLQ pain TECHNIQUE: Axial computed tomography images of the abdomen and pelvis with intravenous contrast. CTDI is 23.6 mGy and DLP is 1168 mGy-cm. This CT exam was performed using one or more of the following dose reduction techniques: automated exposure control, adjustment of the mA and/or kV according to patient size, and/or use of iterative reconstruction technique. COMPARISON: No relevant prior studies available. FINDINGS: Lung bases: Unremarkable. No mass. No consolidation. ABDOMEN: Liver: Unremarkable. No mass. Gallbladder and bile ducts: Unremarkable. No calcified stones. No ductal dilation. Pancreas: Unremarkable. No mass. No ductal dilation. Spleen: Unremarkable. No splenomegaly. Adrenals: Unremarkable. No mass. Kidneys and ureters: Unremarkable. No solid mass. No hydronephrosis. Stomach and bowel: Acute diverticulitis of the proximal sigmoid colon, consisting of moderate peridiverticular inflammation. No perforation or abscess. No obstruction. PELVIS: Appendix: No findings to suggest acute appendicitis. Bladder: Unremarkable. No mass. Reproductive: Unremarkable as visualized. ABDOMEN and PELVIS: Intraperitoneal space: Unremarkable. No free air. No significant fluid collection. Bones/joints: No acute fracture. No dislocation. Soft tissues: Unremarkable. Vasculature: Unremarkable. No abdominal aortic aneurysm. Lymph nodes: Unremarkable. No enlarged lymph nodes. IMPRESSION: Acute diverticulitis of the proximal sigmoid colon, consisting of moderate peridiverticular inflammation. No perforation or abscess.
--- NOTE | 2024-07-12 01:06 | XR ---
EXAM: XR Chest, 2 Views CLINICAL HISTORY: ITS.REASON XR Reason: Chest Pain TECHNIQUE: Frontal and lateral views of the chest. COMPARISON: No relevant prior studies available. FINDINGS: Lungs: Unremarkable. No consolidation. Pleural space: Unremarkable. No pneumothorax. Heart: Unremarkable. No cardiomegaly. Mediastinum: Unremarkable. Normal mediastinal contour. Bones/joints: Unremarkable. No acute fracture. Tubes, lines and devices: Pacemaker leads. IMPRESSION: No acute findings in the chest.
[2024-07-12] MEDS: KETOROLAC 15 MG/ML 1 ML VIAL IVP STA (01:14)
[2024-07-12 01:16] LABS: Partial Thromboplastin Time 24.1 sec (22.0-30.0); Prothrombin Time 11.3 sec (10.0-12.5)
[2024-07-12 01:38] VITALS: BP 133/84; PULSE 67; RESP 18; TEMP 98.2
== END 2024-07-12 01:33 | disposition home or self-care (01) ==
LOC: EC 23:36
DX: K57.32 Diverticulitis of large intestine without perforation or abscess without bleeding (principal); Z91.010 Allergy to peanuts; Z91.018 Allergy to other foods
CPT/HCPCS: 36415; 93005; 80053; 83605; 83735; 84484; 85025; 85610; 85730; 81003; 71046; 70450; 74177; 99285; 96374; 96375; 96361; J2405; J1885; Q9967

== ENCOUNTER 2024-08-30 09:19 | Day surgery (SDC) | payer BC, OTHER ==
[2024-08-26 13:32] VITALS: BMI 27.5
[2024-08-30 10:19] VITALS: RESP 16; TEMP 97.1
[2024-08-30] MEDS: LACTATED RINGERS 1,000 ML BAG IV STA (10:20)
[2024-08-30] MEDS: IV FLUID CONTINUATION 1,000 ML IV ONE (10:20)
[2024-08-30] MEDS: LIDOCAINE 1% (10MG/ML) FOR IV START INTRADERMA STA (10:20)
[2024-08-30] MEDS ORDERED: PROPOFOL 10 MG/ML 20 ML VIAL IV ONE (11:16)
--- NOTE | 2024-08-30 11:32 | P.PCN ---
Date of Procedure: 08/30/24 Procedure(s) Performed: BRIEF HISTORY: Patient is a 58-year-old pleasant white male scheduled for an elective colonoscopy as a part of evaluation of intermittent rectal bleeding. PROCEDURE PERFORMED: Colonoscopy. PREOPERATIVE DIAGNOSIS: Intermittent rectal bleeding. IV sedation per Anesthesia. PROCEDURE: After informed consent was obtained, the patient, was brought into the endoscopy unit. IV sedation was administered by Anesthesia under continuous monitoring. Digital rectal examination was normal. Initially the Olympus CF-160 flexible video colonoscope was then inserted in the rectum, gradually advanced into the cecum without any difficulty. Careful examination was performed as the scope was gradually being withdrawn. Ileocecal valve and the appendiceal orifice were visualized and appeared normal. Prep was excellent. Mucosa of the cecum, ascending colon, transverse colon, descending colon, sigmoid colon, and rectum appeared normal. Katter sigmoid diverticulosis. Retroflexion was performed in the rectum and small internal hemorrhoid were seen. The patient tolerated the procedure well. IMPRESSION: Normal-appearing colon from rectum to cecum with no evidence of colitis or colorectal neoplasia Small internal hemorrhoids Scattered sigmoid diverticulosis. RECOMMENDATIONS: Findings of this examination were discussed with the patient as well as his family. He was advised to be on high-fiber diet and take fiber supplements on a regular basis. Recommended repeat screening colonoscopy in 10 years..
[2024-08-30 11:54] VITALS: BP 104/66
[2024-08-30 11:57] VITALS: PULSE 64
== END 2024-08-30 12:08 ==
LOC: ORWHC2ENDO 09:19
PROVIDERS: ATTEND Internal Medicine Gastroenterology
DX: K62.5 Hemorrhage of anus and rectum (principal); K57.30 Diverticulosis of large intestine without perforation or abscess without bleeding; K64.8 Other hemorrhoids; G47.33 Obstructive sleep apnea (adult) (pediatric); Z95.0 Presence of cardiac pacemaker
CPT/HCPCS: 45378; J2704